=== PATIENT | male | born 1940 | race Caucasian/White ===

== ENCOUNTER 2017-04-12 20:04 | Emergency (ER) | payer MEDICARE, OTHER ==
[2017-04-12] MEDS ORDERED: Lidocaine 1% with EPINEPHrine 1:100,000 20 ML MDV INFILT ONE (20:07)
--- NOTE | 2017-04-12 20:16 | EDM.PDOC ---
ED HPI GENERAL MEDICAL PROBLEM - General Chief Complaint: Laceration Stated Complaint: fell and hit head; laceration to left eyebrow Time Seen by Provider: 04/12/17 20:07 Source of Information: Reports: Patient, Family, RN, RN Notes Reviewed History Limitations: Reports: No Limitations - History of Present Illness INITIAL COMMENTS - FREE TEXT/NARRATIVE: Patient presents to the ED at [facility] after he sustained a head injury by falling and hitting his head on a rock. Patient states he was bend over picking up some rocks while cleaning his yard, when he fell and lost his balance , landing forward striking his head on a rock. Patient denies any LOC. No previous head trauma. Patient complains of head and neck pain. Patient states he has a cut above his left eyebrow. No other concerns. Onset: Today Left Eye Pain Score (Numeric/FACES): 3 - Related Data Allergies Allergy/AdvReac Type Severity Reaction Status Date / Time codeine Allergy Hives Verified 04/12/17 20:21 erythromycin base Allergy Hives Verified 04/12/17 20:21 Penicillins Allergy Hives Verified 04/12/17 20:21 sunflower oil Allergy Other Verified 04/12/17 20:21 CORN DEXTRIN Allergy Other Uncoded 04/12/17 20:21 MOLDS Allergy Other Uncoded 04/12/17 20:21 Home Meds: Home Meds Acetaminophen [Tylenol] 1 - 2 tab PO Q4H PRN 09/19/14 [History] Acetaminophen/Diphenhydramine [Acetaminophen Pm Gelcap] 1 tab PO BEDTIME PRN 01/28 [History] Aspirin [Halfprin] 81 mg PO DAILY 09/19/14 [History] Benazepril [Lotensin] 1 tab PO DAILY 09/19/14 [History] Betamethasone Dipropionate [Diprosone 0.05% Crm] 1 applic TOP BID PRN 09/19/14 [ History] Clobetasol [Temovate 0.05% Crm] 1 applic TOP BID 09/19/14 [History] Clotrimazole/Betamethasone Dip [Lotrisone Cream] 1 applic TOP BID 09/19/14 [ History] Diclofenac Sodium [Voltaren] 1 tab PO ASDIRECTED PRN 09/19/14 [History] Terazosin [Hytrin] 1 cap PO BEDTIME 09/19/14 [History] ED ROS GENERAL - Review of Systems Review Of Systems: See Below Constitutional: Denies: Fever, Chills, Weakness Respiratory: Denies: Shortness of Breath, Cough Cardiovascular: Denies: Chest Pain, Palpitations Musculoskeletal: Reports: Neck Pain Skin: Reports: Wound (cut to left eyebrow) Neurological: Reports: Headache. Denies: Dizziness, Numbness, Paresthesia, Tingling ED EXAM, SKIN/RASH Exam: See Below Exam Limited By: No Limitations General Appearance: Alert, No Apparent Distress Eye Exam: Right Eye: Normal Inspection, Left Eye: Periorbital Changes, Bilateral Eye: EOMI, PERRL Ears: Normal External Exam, Normal Canal, Normal TMs Nose: Normal Inspection Throat/Mouth: Normal Inspection, Normal Oropharynx, No Airway Compromise Head: Other (Facial tenderness to right cheek from an abrasion) Neck: Normal Inspection, Supple, Full Range of Motion Respiratory/Chest: No Respiratory Distress, Lungs Clear, Normal Breath Sounds Cardiovascular: Regular Rate, Rhythm Extremities: Normal Inspection Neurological: Alert, Oriented, Normal Cognition Skin: Wound/Incision (2cm horizontal abrasion to right cheek (no intervention indicated); 3.5cm laceration to left eyebrow with periorbital edema; horizontal lac; low grade venous ooze) ED SKIN PROCEDURES - Laceration/Wound Repair Left Forehead Lac/Wound length In cm: 3.5 (Left eyebrow line) Appearance: Subcutaneous, Linear, Mildly Contaminated Distal NVT: Neuro & Vascular Intact Anesthetic Type: Local Local Anesthesia - Lidocaine (Xylocaine): 1% With EPI Local Anesthetic Volume: 5cc Skin Prep: Chlorhexidine (Hibiciens), Saline Exploration/Debridement/Repair: Wound Explored, in a Bloodless Field, Explored to Base, No Foreign Material Found, Wound Margins Revised Closed with: Sutures Suture Size: 4-0 # of Sutures: 5 Suture Type: Nylon, Interrupted, Simple Sterile Dressing Applied: Provider Tetanus Status Addressed: Yes Complications: No Course - Vital Signs Last Recorded V/S: Last Vital Signs Temp 36.3 C 04/12/17 20:18 Pulse 113 H 04/12/17 20:18 Resp 18 04/12/17 20:18 BP 147/81 H 04/12/17 20:18 Pulse Ox 94 L 04/12/17 20:18 - Orders/Labs/Meds Orders: Active Orders 24 hr Category Date Time Status Cervical Spine wo Cont [CT] Stat Exams 04/12/17 20:16 Taken Head wo Cont [CT] Stat Exams 04/12/17 20:07 Taken Meds: Medications Discontinued Medications Generic Name Dose Route Start Last Admin Trade Name Berry PRN Reason Stop Dose Admin Lidocaine/Epinephrine 20 ml 04/12/17 20:07 04/12/17 20:15 Xylocaine 1% With Epinephrine 1:100,000 INFILT 04/12/17 20:08 20 ml ONETIME ONE Administration - Radiology Interpretation Free Text/Narrative:: CT Head: No CT evidence for an acute intracranial process; There is no CT evidence for acute hemorrhage, acute infarct, or mass CT C-spine: No CT evidence for fracture See scanned reports in EMR CT Results Date: 04/12/17 CT Results Time: 21:49 Departure - Departure Time of Disposition: 21:57 Disposition: Home, Self-Care 01 Condition: Good Clinical Impression: Closed head injury without loss of consciousness Qualifiers: Encounter type: initial encounter Qualified Code(s): S09.90XA - Unspecified injury of head, initial encounter Laceration of eyebrow, left Qualifiers: Encounter type: initial encounter Qualified Code(s): S01.112A - Laceration without foreign body of left eyelid and periocular area, initial encounter Fall Qualifiers: Encounter type: initial encounter Qualified Code(s): W19.XXXA - Unspecified fall, initial encounter - Discharge Information Instructions: Head Injury, Adult, Laceration Care, Adult, Sutured Wound Care Referrals: Teresa Hernandez MD [Physician] - Forms: ED Department Discharge Additional Instructions: 1. Stay well hydrated and rest 2. Keep bandaid on for 24 hours, then remove 3. May shower/bathe as usual 4. Keep sutures clean and dry 5. Follow up with your Primary in 10 days for recheck and possible suture removal - Problem List Review Problem List Initiated/Reviewed/Updated: Yes - My Orders Last 24 Hours: My Active Orders 04/12/17 20:07 Head wo Cont [CT] Stat 04/12/17 20:16 Cervical Spine wo Cont [CT] Stat - Assessment/Plan Last 24 Hours: My Active Orders 04/12/17 20:07 Head wo Cont [CT] Stat 06/27/17 20:16 Cervical Spine wo Cont [CT] Stat
[2017-04-12 20:20] VITALS: BP 147/81
== END 2017-04-12 22:05 | disposition home or self-care (01) ==
LOC: VM.ED 20:04
DX: S09.90XA Unspecified injury of head, initial encounter (principal); S01.112A Laceration without foreign body of left eyelid and periocular area, initial encounter; S00.81XA Abrasion of other part of head, initial encounter; Z88.5 Allergy status to narcotic agent; Z88.0 Allergy status to penicillin; Z91.018 Allergy to other foods; Z79.82 Long term (current) use of aspirin; Z79.899 Other long term (current) drug therapy; W19.XXXA Unspecified fall, initial encounter
CPT/HCPCS: 12013; 70450; 72125; 99284; 99284-GF-25